=== PATIENT | male | born 1985 | race American Indian/Alaskan Native ===

== ENCOUNTER 2017-10-05 08:51 | Emergency (ER) | payer MEDICAID ==
[2017-10-05 08:54] VITALS: BMI 24.3
[2017-10-05 08:57] VITALS: BP 108/60; PULSE 93; RESP 20; TEMP 98.2; O2SAT 96
--- NOTE | 2017-10-05 09:27 | ED PDOC ---
HPI: Male Pain Time Seen by Provider: 10/05/17 09:10 Chief Complaint (Nursing): Male Genitourinary Chief Complaint (Provider): it godinez when i pee History Per: Patient History/Exam Limitations: no limitations Onset/Duration Of Symptoms: Days (30+), Gradual Current Symptoms Are (Timing): Intermittent Episodes Quality Of Discomfort: Burning Associated Symptoms: denies: Fever, Chills, Nausea, Vomiting, Diarrhea, Loss Of Appetite, Back Pain Alleviating Factors: None Additional Complaint(s): 32yo male prior well c/o intermittent dysuria for the last month. Denies back pain, fever, abd pain, hematuria, penile discharge, penile lesions or known exposure to STD. Hes requesting testing for common STDs. States only sexually active w no barrier protection. States HIV test one year ago, refused that today. Past Medical History Reviewed: Historical Data, Nursing Documentation Vital Signs: Last Vital Signs Temp 98.2 F 10/05/17 08:54 Pulse 93 H 10/05/17 08:54 Resp 20 10/05/17 08:54 BP 108/60 10/05/17 08:54 Pulse Ox 96 10/05/17 08:54 - Medical History PMH: No Chronic Diseases - Surgical History Surgical History: No Surg Hx - Family History Family History: States: Unknown Family Hx - Allergies Allergies/Adverse Reactions: Allergies Allergy/AdvReac Type Severity Reaction Status Date / Time No Known Allergies Allergy Verified 10/05/17 09:06 Review of Systems Constitutional: Negative for: Fever, Chills Respiratory: Negative for: Cough, Shortness of Breath Gastrointestinal: Negative for: Nausea Genitourinary Male: Positive for: Dysuria. Negative for: Frequency, Incontinence, Hematuria, Penile Discharge, Scrotal Pain, Rash, Penile Pain Musculoskeletal: Negative for: Neck Pain, Back Pain Skin: Negative for: Rash, Lesions, Jaundice Neurological: Negative for: Weakness, Numbness Physical Exam - Reviewed Nursing Documentation Reviewed: Yes Vital Signs Reviewed: Yes - Physical Exam Appears: Positive for: Well, Non-toxic Head Exam: Positive for: ATRAUMATIC Skin: Positive for: Normal Color, Warm, Dry Cardiovascular/Chest: Negative for: Tachycardia Respiratory: Negative for: Respiratory Distress Male Genital Exam: Positive for: normal genitalia. Negative for: erythema, lesions, scrotum tenderness (R), scrotum tenderness (L), urethral discharge - ECG O2 Sat by Pulse Oximetry: 96 Medical Decision Making Medical Decision Making: G/C and genital culture obtained UCx/ UA obtained. Pt requesting empiric treatment UA unremarkable UCx sent, pending result 24-48h Instructions provided, avoid sex until results back. Followup urology if symptoms persist. Disposition - Clinical Impression Clinical Impression: Dysuria - Patient ED Disposition Is Patient to be Admitted: No Counseled Patient/Family Regarding: Studies Performed, Diagnosis, Need For Followup - Disposition Referrals: Provider LORY, [Primary Care Provider] - Riley Mac MD [Staff Provider] - Disposition: Routine/Home Disposition Time: 10:00 Condition: STABLE Additional Instructions: Followup with urology if symptoms persist. Return to ER for any worse or new symptoms STD testing takes 2-3 days, you will be called at the phone number you provided if results are positive. Instructions: Dysuria (ED) Forms: [facility] ([place])
[2017-10-05] MEDS ORDERED: cefTRIAXone (Rocephin) 250 mg Inj IM ONE (09:31)
[2017-10-05 09:40] LABS: RBC URINE < 1 /hpf (0-3); URINE BILIRUBIN NEGATIVE (NEGATIVE); URINE BLOOD NEGATIVE (NEGATIVE); URINE COLOR STRAW (YELLOW); URINE GLUCOSE (UA) NEG (Normal); URINE KETONE NEGATIVE (NEGATIVE); URINE LEUKOCYTE ESTERASE NEG Leu/uL (Negative); URINE PROTEIN NEGATIVE (NEGATIVE); URINE UROBILINOGEN 0.2-1.0 mg/dL (0.2-1.0); WBC URINE < 1 /hpf (0-5)
[2017-10-05] MEDS ORDERED: cefTRIAXone (Rocephin) 250 mg Inj ONE (10:11)
== END 2017-10-05 10:40 | disposition home or self-care (01) ==
LOC: H.ER 08:51 → SUPCPDRO 08:51 → H.ER 10:40
DX: R30.0 Dysuria (principal); Z11.3 Encounter for screening for infections with a predominantly sexual mode of transmission
CPT/HCPCS: 81003; 87070; 87086; 87491; 87591; 96372; 99283; J0696

== ENCOUNTER 2018-12-18 10:07 | Emergency (ER) | payer MEDICAID ==
[2018-12-18 10:08] VITALS: BMI 24.3
[2018-12-18 10:35] VITALS: RESP 18
--- NOTE | 2018-12-18 11:29 | ED PDOC ---
HPI: Abdomen Time Seen by Provider: 12/18/18 10:25 Chief Complaint (Nursing): Abdominal Pain Chief Complaint (Provider): Abdominal Lump History Per: Patient History/Exam Limitations: no limitations Onset/Duration Of Symptoms: Days (four to five) Current Symptoms Are (Timing): Still Present Severity: Mild (Pt presents to the ED complaining of a small bulge in his central abdomen, located centerline in the epigastric region. Pt denies pain but indicates that there is mild tenderness to palpation. Pt denies surgeries and diabetes, but does indicate that he was a smoker up until 30 days prior. Pt denies nausea, vomiting, fever and diarhhea.) Past Medical History Reviewed: Historical Data, Nursing Documentation Vital Signs: Last Vital Signs Temp 97 F L 12/18/18 10:34 Pulse 79 12/18/18 10:34 Resp 18 12/18/18 10:34 BP 129/69 12/18/18 10:34 Pulse Ox 98 12/18/18 10:34 - Family History Family History: States: Unknown Family Hx - Allergies Allergies/Adverse Reactions: Allergies Allergy/AdvReac Type Severity Reaction Status Date / Time No Known Allergies Allergy Verified 10/05/17 09:06 Review of Systems ROS Statement: Except As Marked, All Systems Reviewed And Found Negative Gastrointestinal: Positive for: Abdominal Pain (mild TTP ) Musculoskeletal: Positive for: Other (ttp to abdominal region, see HPI) Physical Exam - Reviewed Nursing Documentation Reviewed: Yes Vital Signs Reviewed: Yes - Physical Exam Appears: Positive for: Well, Non-toxic, No Acute Distress. Negative for: Uncomfortable Head Exam: Positive for: ATRAUMATIC, NORMAL INSPECTION Skin: Positive for: Normal Color, Warm, Dry. Negative for: Diaphoresis, Pallor, Rash Eye Exam: Positive for: Normal appearance, PERRL. Negative for: Nystagmus, Periorbital swelling, Periorbital tenderness Neck: Positive for: Normal, Painless ROM, Supple. Negative for: Decreased ROM Cardiovascular/Chest: Positive for: Regular Rate, Rhythm Respiratory: Positive for: Normal Breath Sounds Pulses-Carotid (L): 2+ Pulses-Carotid (R): 2+ Pulses-Femoral (L): 2+ Pulses-Femoral (R): 2+ Pulses-Radial (L): 2+ Pulses-Radial (R): 2+ Gastrointestinal/Abdominal: Positive for: Normal Exam, Bowel Sounds (active in all four quadrants), Soft, Tenderness (mild tenderness to palpation of lump which partially reduces on recumbance), Hernia (see HPI). Negative for: Di stended, Guarding, Rebound Back: Positive for: Normal Inspection. Negative for: L CVA Tenderness, R CVA Tenderness - Laboratory Results Result Diagrams: 12/18/18 11:30 12/18/18 11:30 - ECG O2 Sat by Pulse Oximetry: 98 Medical Decision Making Medical Decision Making: R/O ventral hernia CBC Lipase CMP CT A&P with IV Contrast The patient was discharged home in hemodynamically stable condition. Although a definitive etiology could not be found, the patient was told of the possible causes to their pain. Instructed to follow a clear liquid diet for 24 hours then gradually advance diet. Instructed to return immediately for increasing pain, change in pain character or location, fevers, nausea, vomiting or any worrisome concern. RTED sooner if persistent fevers, vomiting, lethargy, difficulty breathing, diarrhea, urinary problems. Disposition - Clinical Impression Clinical Impression: Abdominal discomfort - Patient ED Disposition Is Patient to be Admitted: No Doctor Will See Patient In The: Office Counseled Patient/Family Regarding: Studies Performed, Diagnosis, Need For F ollowup - Disposition Disposition: Routine/Home Disposition Time: 13:19 Condition: STABLE Additional Instructions: The patient was discharged home in hemodynamically stable condition. Although a definitive etiology could not be found, the patient was told of the possible causes to their pain. Instructed to follow a clear liquid diet for 24 hours then gradually advance diet. Return immediately for increasing pain, change in pain character or location, fevers, nausea, vomiting or any worrisome concern. RTED sooner if persistent fevers, vomiting, lethargy, difficulty breathing, diarrhea, urinary problems. Instructions: Abdominal Muscle Strain, Abdominal Muscle Strain (DC), Abdominal Wall Hernias Forms: [employer] (Greek)
[2018-12-18 11:46] LABS: BASO % 0.1 % (0.0-2.0); EOS % 0.5 % (0.0-4.0); LYMPH # 1.1 K/uL (1.0-4.3); LYMPH % 26.2 % (20.0-40.0); MEAN CORPUSCULAR HEMOGLOBIN 29.9 pg (27.0-31.0); MEAN CORPUSCULAR HGB CONC 34.4 g/dL (33.0-37.0); MEAN PLATELET VOLUME 7.1 fl (7.2-11.7); MONO # 0.5 K/uL (0.0-0.8); MONO % 11.6 % (0.0-10.0); NEUT # 2.5 K/uL (1.8-7.0); NEUT % 61.6 % (50.0-75.0); NRBC % 0.1 % (0.0-0.0); RBC 4.69 Mil/uL (4.40-5.90); RED CELL DISTRIBUTION WIDTH 12.4 % (11.5-14.5)
[2018-12-18 12:09] LABS: ALB/GLOB RATIO 1.4 (1.0-2.1); ALBUMIN 4.2 g/dL (3.5-5.0); ALT/SGPT 38 U/L (21-72); AST/SGOT 38 U/L (17-59); BLOOD UREA NITROGEN 11 mg/dl (9-20); GFR NON-AFRICAN AMERICAN > 60; LIPASE 58 U/L (23-300)
[2018-12-18] MEDS ORDERED: Sodium Chloride 0.9% 50 ML IV ONE (12:20)
[2018-12-18] MEDS ORDERED: Iohexol 300 100 ML IJ ONE (12:20)
--- NOTE | 2018-12-18 13:25 | CT ---
Date of service: 12/18/2018 PROCEDURE: CT Abdomen and Pelvis with contrast HISTORY: abdominal lump; r/o ventral hernia COMPARISON: None. TECHNIQUE: Following the intravenous administration of iodinated contrast material, a CT examination of the abdomen and pelvis was performed from the domes of the diaphragms to the symphysis pubis with reformatted datasets provided in axial, sagittal and coronal planes. Oral contrast was not administered as per referring physician request. Contrast dose: Omnipaque 300, 95 cc Radiation dose: Total exam DLP = 313.71 mGy-cm. This CT exam was performed using one or more of the following dose reduction techniques: Automated exposure control, adjustment of the mA and/or kV according to patient size, and/or use of iterative reconstruction technique. 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 No pulmonary vascular congestion or pleural effusion evident. LIVER: Diminished attenuation throughout the liver suggests hepatic steatosis. No mass or intrahepatic biliary dilatation identified. No discrete hepatic mass. GALLBLADDER AND BILE DUCTS: Unremarkable. PANCREAS: Unremarkable. No gross lesion or ductal dilatation. SPLEEN: Unremarkable. ADRENALS: Unremarkable. No mass. KIDNEYS AND URETERS: Unremarkable. No hydronephrosis. No solid mass. VASCULATURE: Unremarkable. No aortic aneurysm. No aortic atherosclerotic calcification or mural plaque present. BOWEL: Stomach is mildly distend with retained gas and food with [id number] dilatation of very small bowel loops containing air and fluid. The colon is not significantly collapsed however and the pattern does not reflect a bowel obstruction. Likely reflects a mild ileus. No ventral abdominal hernia is appreciated or other explanation for clinically reported abdominal lump. APPENDIX: Normal appendix. PERITONEUM: Unremarkable. No free fluid. No free air. LYMPH NODES: Unremarkable. No enlarged lymph nodes. BLADDER: The bladder is mildly distended with mild thickening of the wall which may reflect cystitis. Clinically correlate further. REPRODUCTIVE: Unremarkable. BONES: No acute fracture. OTHER FINDINGS: None. IMPRESSION: 1. Mild ileus pattern suggested affecting small-bowel. Clinically correlate further. No definite bowel obstruction appreciated at this time. 2. No definite ventral abdominal hernia or definitive abdominal mass appreciable, including at the midline. 3. Hepatic steatosis. 4. Potential cystitis.
[2018-12-18 13:40] LABS: URINE BILIRUBIN NEGATIVE (NEGATIVE); URINE BLOOD NEGATIVE (NEGATIVE); URINE CLARITY CLEAR (Clear); URINE COLOR STRAW (YELLOW); URINE GLUCOSE (UA) NEG (NEGATIVE); URINE LEUKOCYTE ESTERASE NEG Leu/uL (Negative); URINE PROTEIN NEGATIVE (NEGATIVE); URINE UROBILINOGEN 0.2-1.0 mg/dL (0.2-1.0)
[2018-12-18 13:58] VITALS: BP 126/72; PULSE 75; TEMP 97.5; O2SAT 100
== END 2018-12-18 13:55 | disposition home or self-care (01) ==
LOC: H.ER 10:07
DX: R10.9 Unspecified abdominal pain (principal)
CPT/HCPCS: 74177; 80053; 81003; 83690; 85025; 99282; Q9967